=== PATIENT | male | born 1970 | race Caucasian/White ===

== ENCOUNTER 2020-10-25 14:03 | Emergency (ER) | payer OTHER ==
[2020-10-25] MEDS ORDERED: KETOROLAC 30 MG/ML INJ ONE (14:54)
[2020-10-25 15:02] LABS: Absolute Lymphocytes (CBC) 1.7 K/uL (0.7-4.9); Hematocrit 40.7 % (39.6-49.0); Lymphocytes % 26.3 % (15.3-44.8); MPV 8.1 fL (7.6-11.3); RBC Red Blood Cell Count 4.56 M/uL (4.33-5.43)
--- NOTE | 2020-10-25 15:08 | RAD REPORT ---
EXAM DESCRIPTION: US - Abdomen Exam Limited - 10/25/2020 2:55 pm CLINICAL HISTORY: Abdominal pain. COMPARISON: None. FINDINGS: The gallbladder wall is not thickened. A gallstone is not seen. The biliary tree is normal caliber. Liver has increased echotexture consistent with fatty infiltration IMPRESSION: Unremarkable gallbladder ultrasound.
[2020-10-25 15:14] LABS: Protime INR 0.95
[2020-10-25 15:26] LABS: ALT/SGPT 40 U/L (12-78); AST/SGOT 21 U/L (15-37); Albumin 4.1 g/dL (3.4-5.0); Alkaline Phosphatase 75 U/L (45-117); BUN Blood Urea Nitrogen 14 mg/dL (7-18); Bicarbonate 27 mmol/L (21-32); Bilirubin Direct 0.1 mg/dL (0-0.2); Bilirubin Total 0.5 mg/dL (0.2-1.0); Glucose Level 92 mg/dL (74-106); Lipase 79 U/L (73-393); Magnesium 1.9 mg/dL (1.8-2.4); NT PRO-BNP 33 pg/mL (<125); Potassium 3.9 mmol/L (3.5-5.1); Protein, Total 7.7 g/dL (6.4-8.2); Sodium Level 138 mmol/L (136-145); Troponin (Emerg Dept Use Only) < 0.02 ng/mL (0.0-0.045)
--- NOTE | 2020-10-25 15:36 | RAD REPORT ---
EXAM DESCRIPTION: [facility] Single View10/25/2020 3:19 pm CLINICAL HISTORY: Chest pain COMPARISON: 2014 FINDINGS: The lungs appear clear of acute infiltrate. The heart is normal size IMPRESSION: No acute abnormalities displayed
--- NOTE | 2020-10-25 16:27 | EDPHYS ---
Physician Documentation [facility] Name: Lester Ortega Age: 49 yrs Sex: Male : 1970 Arrival Date: 10/25/2020 Time: 14:03 Bed 14 Private MD: ED Physician Micheal Ravi HPI: 10/25 14:30 This 49 yrs old Male presents to ER via Ambulatory with complaints of Chest cp Pain, Epigastric Pain. 14:30 The patient or guardian reports chest pain that is located primarily in the right side cp lower chest. 14:30 Onset: 1 month(s) ago. The pain does not radiate. Associated signs and symptoms: cp Pertinent positives: diarrhea, Pertinent negatives: abdominal pain, cough, lower extremity pain, lower extremity swelling, palpitations, shortness of breath, syncope. Duration: The patient or guardian reports multiple episodes, that are intermittent. Modifying factors: the symptoms are aggravated by movement, raising right arm. 14:30 Patient reports testing positive for COVID-19 about 3 weeks ago. cp Historical: - Allergies: 14:15 No Known Allergies; aa5 - Home Meds: 14:15 Zoloft Oral [Active]; aa5 - PMHx: 14:15 Anxiety; aa5 - PSHx: 14:15 right knee; aa5 - Immunization history:: Adult Immunizations unknown. - Social history:: Smoking status: Patient reports use of chewing tobacco. ROS: 14:35 Constitutional: Negative for body aches, chills, fever, poor PO intake. cp 14:35 Eyes: Negative for injury, pain, redness, and discharge. cp 14:35 Cardiovascular: Positive for chest pain, of the right side lower chest, Negative for edema, palpitations. 14:35 Respiratory: Negative for cough, shortness of breath, wheezing. 14:35 Abdomen/GI: Positive for diarrhea, Negative for nausea, vomiting, and diarrhea, constipation, black/tarry stool, rectal bleeding. 14:35 Back: Negative for pain at rest, pain with movement, radiated pain. 14:35 : Negative for urinary symptoms. 14:35 Skin: Negative for cellulitis, rash. 14:35 Neuro: Negative for altered mental status, headache, syncope, weakness. 14:35 All other systems are negative. Exam: 14:30 ECG was reviewed by the Attending Physician. cp 14:40 Constitutional: The patient appears in no acute distress, alert, awake, cp non-diaphoretic, non-toxic, well developed, well nourished. 14:40 Head/Face: Normocephalic, atraumatic. cp 14:40 Eyes: Periorbital structures: appear normal, Conjunctiva: normal, no exudate, no injection, Sclera: no appreciated abnormality, Lids and lashes: appear normal, bilaterally. 14:40 ENT: External ear(s): are unremarkable, Nose: is normal, Mouth: Lips: moist, Oral mucosa: moist. 14:40 Neck: ROM/movement: is normal, is supple, without pain, no range of motions limitations. 14:40 Chest/axilla: Inspection: normal, Palpation: is normal, no crepitus, no tenderness. 14:40 Cardiovascular: Rate: normal, Rhythm: regular, Edema: is not appreciated, JVD: is not appreciated. 14:40 Respiratory: the patient does not display signs of respiratory distress, Respirations: normal, no use of accessory muscles, no retractions, labored breathing, is not present, Breath sounds: are clear throughout, no decreased breath sounds, no stridor, no wheezing. 14:40 Abdomen/GI: Inspection: abdomen appears normal, Bowel sounds: active, all quadrants, Palpation: abdomen is soft and non-tender, in all quadrants. 14:40 Back: pain, is absent, ROM is normal. 14:40 Skin: cellulitis, is not appreciated, no rash present. 14:40 Neuro: Orientation: to person, place \T\ time. Mentation: is normal, Motor: moves all fours, strength is normal. Vital Signs: 14:13 BP 161 / 102; Pulse 67; Resp 16 S; Temp 97.5(TE); Pulse Ox 99% on R/A; Weight 113.4 kg aa5 (R); Height 6 ft. 1 in. (185.42 cm) (R); Pain 5/10; 14:13 Body Mass Index 32.98 (113.40 kg, 185.42 cm) aa5 MDM: 14:16 Patient medically screened. cp 14:30 Differential diagnosis: acute pericarditis, cholecystitis, Cholelithiasis cp costochondritis, pleurisy, pneumonia, pneumothorax, pulmonary embolus, stable angina, thoracic aortic disection, unstable angina. 16:25 Data reviewed: vital signs, nurses notes, lab test result(s), EKG, radiologic studies, cp plain films. 16:25 Test interpretation: by ED physician or midlevel provider: ECG, plain radiologic cp studies. Counseling: I had a detailed discussion with the patient and/or guardian regarding: the historical points, exam findings, and any diagnostic results supporting the discharge/admit diagnosis, the presence of at least one elevated blood pressure reading (>120/80) during this emergency department visit, lab results, radiology results. 16:25 ED course: VSS. Pain improved with meds. Discussed results of labs, EKG and radiology cp studies. Will discharge to home for continued monitoring. 10/25 14:23 Order name: Basic Metabolic Panel cp 10/25 14:23 Order name: CBC with Diff; Complete Time: 15:51 cp 10/25 14:23 Order name: LFT's; Complete Time: 15:51 cp 10/25 16:18 Interpretation: Normal except: GLOB 3.6. cp 10/25 14:23 Order name: Magnesium; Complete Time: 15:51 cp 10/25 14:23 Order name: NT PRO-BNP; Complete Time: 15:51 cp 10/25 14:23 Order name: PT-INR; Complete Time: 15:51 cp 10/25 14:23 Order name: Troponin (emerg Dept Use Only); Complete Time: 15:51 cp 10/25 14:23 Order name: XRAY Chest (1 view); Complete Time: 15:51 cp 10/25 14:23 Order name: EKG; Complete Time: 14:24 cp 10/25 14:23 Order name: D-Dimer; Complete Time: 15:51 cp 10/25 14:23 Order name: Lipase; Complete Time: 15:51 cp 10/25 14:24 Order name: Basic Metabolic Panel; Complete Time: 15:51 EDMS 10/25 14:33 Order name: US Abdomen Limited: RUQ; Complete Time: 15:51 cp 10/25 15:51 Interpretation: Report reviewed. cp 10/25 14:23 Order name: Cardiac monitoring; Complete Time: 14:48 cp 10/25 14:23 Order name: EKG - Nurse/Tech; Complete Time: 14:48 cp 10/25 14:23 Order name: IV Saline Lock; Complete Time: 14:48 cp 10/25 14:23 Order name: Labs collected and sent; Complete Time: 14:48 cp 10/25 14:23 Order name: O2 Per Protocol; Complete Time: 14:48 cp 10/25 14:23 Order name: O2 Sat Monitoring; Complete Time: 14:48 cp EC:30 Rate is 59 beats/min. Rhythm is regular. VA interval is normal. QRS interval is normal. cp QT interval is normal. T waves are Inverted in lead aVR. Interpreted by me. Reviewed by me. Administered Medications: 14:42 Drug: TORadol - Ketorolac 15 mg Route: IVP; Site: right antecubital; jl7 15:08 Follow up: Response: No adverse reaction; Pain is decreased jl7 Disposition: 10/25/20 16:27 Discharged to Home. Impression: Other chest pain - right lower chest. - Condition is Stable. - Discharge Instructions: Chest Wall Pain. - Prescriptions for Cyclobenzaprine 10 mg Oral Tablet - take 1 tablet by ORAL route every 8 hours As needed; 20 tablet. Diclofenac Sodium 75 mg Oral Tablet Sustained Release - take 1 tablet by ORAL route 2 times per day; 30 tablet. - Medication Reconciliation Form, Thank You Letter, Antibiotic Education, Prescription Opioid Use form. - Follow up: Private Physician; When: 1 - 2 days; Reason: Recheck today's complaints. - Problem is new. - Symptoms have improved. Addendum: 10/26/2020 18:43 Co-signature as Attending Physician, Micheal Ravi MD. m a2 Signatures: Dispatcher [employer] [facility] Daphne Chinchilla RN RN aa5 Jamison Valencia PA PA cp Leal, Jahala, RN RN jl7 Micheal Ravi MD MD ma2 Corrections: (The following items were deleted from the chart) 10/25 16:28 15:52 Recheck B/P ordered. cp cp 16:48 16:27 10/25/2020 16:27 Discharged to Home. Impression: Other chest pain - right lower jl7 chest. Condition is Stable. Forms are Medication Reconciliation Form, Thank You Letter, Antibiotic Education, Prescription Opioid Use. Follow up: Private Physician; When: 1 - 2 days; Reason: Recheck today's complaints. Problem is new. Symptoms have improved. cp
--- NOTE | 2020-10-25 16:27 | ER ---
Nurse's Notes [facility] Name: Lester Ortega Age: 49 yrs Sex: Male : 1970 Arrival Date: 10/25/2020 Time: 14:03 Bed 14 Private MD: Diagnosis: Other chest pain-right lower chest Presentation: 10/25 14:13 Chief complaint: Patient states: right-sided chest pain and diarrhea that began aa5 approximately 1 month ago. Pt reports pain gets worse with eating. Pt reports he was positive for COVID-19 approximately 3 weeks ago. 14:13 Onset of symptoms was September 2020. aa5 14:13 Acuity: NUBIA 3 aa5 14:13 Method Of Arrival: Ambulatory aa5 14:13 Coronavirus screen: diarrhea. Ebola Screen: Patient negative for fever greater than or aa5 equal to 101.5 degrees Fahrenheit, and additional compatible Ebola Virus Disease symptoms. Initial Sepsis Screen: Does the patient meet any 2 criteria? No. Patient's initial sepsis screen is negative. Does the patient have a suspected source of infection? No. Patient's initial sepsis screen is negative. Risk Assessment: Do you want to hurt yourself or someone else? Patient reports no desire to harm self or others. Historical: - Allergies: 14:15 No Known Allergies; aa5 - Home Meds: 14:15 Zoloft Oral [Active]; aa5 - PMHx: 14:15 Anxiety; aa5 - PSHx: 14:15 right knee; aa5 - Immunization history:: Adult Immunizations unknown. - Social history:: Smoking status: Patient reports use of chewing tobacco. Screenin:30 Abuse screen: Denies threats or abuse. Denies injuries from another. Nutritional jl7 screening: No deficits noted. Tuberculosis screening: No symptoms or risk factors identified. Fall Risk IV access (20 points). Total Sood Fall Scale indicates No Risk (0-24 pts). Assessment: 14:30 General: Appears in no apparent distress. uncomfortable, Behavior is calm, cooperative, jl7 appropriate for age. Pain: Complains of pain in Right latetral abdomen/chest wall Pain radiates to back Pain currently is 5 out of 10 on a pain scale. Quality of pain is described as sharp, Pain began >1 month Is continuous. Neuro: Level of Consciousness is awake, alert, obeys commands, Oriented to person, place, time, situation. Cardiovascular: Patient's skin is warm and dry. Respiratory: Airway is patent Respiratory effort is even, unlabored, Respiratory pattern is regular, symmetrical. Derm: Skin is pink, warm \T\ dry. Vital Signs: 14:13 BP 161 / 102; Pulse 67; Resp 16 S; Temp 97.5(TE); Pulse Ox 99% on R/A; Weight 113.4 kg aa5 (R); Height 6 ft. 1 in. (185.42 cm) (R); Pain 5/10; 14:13 Body Mass Index 32.98 (113.40 kg, 185.42 cm) aa5 ED Course: 14:03 Patient arrived in ED. as 14:13 Jamison Valecnia PA is PHCP. cp 14:13 Micheal Ravi MD is Attending Physician. cp 14:13 Arm band placed on. aa5 14:30 Klever Fenton RN is Primary Nurse. jl7 14:30 Patient has correct armband on for positive identification. Placed in gown. Bed in low jl7 position. Call light in reach. Side rails up X 1. equipment monitor phototypesetting on. Pulse ox on. NIBP on. 14:30 Initial lab(s) drawn, by me, sent to lab. Inserted saline lock: 20 gauge in right jl7 antecubital area, using aseptic technique. Blood collected. Patient maintains SpO2 saturation greater than 95% on room air. 14:39 Triage completed. aa5 14:55 US Abdomen Limited: RUQ In Process Unspecified. EDMS 15:19 XRAY Chest (1 view) In Process Unspecified. EDMS Administered Medications: 14:42 Drug: TORadol - Ketorolac 15 mg Route: IVP; Site: right antecubital; jl7 15:08 Follow up: Response: No adverse reaction; Pain is decreased jl7 Outcome: 16:27 Discharge ordered by . cp 16:48 Patient left the ED. jl7 Signatures: Dispatcher [employer] Lucina Bloom Audri, RN RN aa5 Jamison Valencia PA PA cp Klever Fenton RN RN jl7
[2020-10-25 19:43] VITALS: BP 161/102; TEMP 97.5; O2SAT 99
== END 2020-10-25 16:48 | disposition home or self-care (01) ==
LOC: ER 14:03
DX: R07.89 Other chest pain (principal); F41.9 Anxiety disorder, unspecified; F17.220 Nicotine dependence, chewing tobacco, uncomplicated
CPT/HCPCS: 36415; 71045; 76705; 80048; 80076; 83690; 83735; 83880; 84484; 85025; 85379; 85610; 93005; 96374; 99285